=== PATIENT | male | born 2000 | race Caucasian/White ===

== ENCOUNTER 2020-03-10 07:39 | Emergency (ER) | payer OTHER ==
[2020-03-10] MEDS ORDERED: Bacitracin Oint 1 GM U/D Packet TOP ONE (08:09)
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
== END 2020-03-10 09:04 | disposition home or self-care (01) ==
LOC: JP.ED 07:39
DX: S61.012A Laceration without foreign body of left thumb without damage to nail, initial encounter (principal); Z88.0 Allergy status to penicillin; Z88.6 Allergy status to analgesic agent; F17.210 Nicotine dependence, cigarettes, uncomplicated; W27.8XXA Contact with other nonpowered hand tool, initial encounter
CPT/HCPCS: 12001; 99282; J2001

== ENCOUNTER 2020-05-15 02:46 | Emergency (ER) | payer SELFPAY ==
[2020-05-15] MEDS ORDERED: Ondansetron 4 MG Tab.DIS PO ONE (03:37)
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
== END 2020-05-15 03:55 | disposition home or self-care (01) ==
LOC: JP.ED 02:46
DX: S09.90XA Unspecified injury of head, initial encounter (principal); Z88.0 Allergy status to penicillin; Z88.6 Allergy status to analgesic agent; W20.8XXA Other cause of strike by thrown, projected or falling object, initial encounter; Y99.0 Civilian activity done for income or pay
CPT/HCPCS: 99001; 99283; A9270

== ENCOUNTER 2020-05-30 21:09 | Emergency (ER) | payer SELFPAY ==
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
== END 2020-05-30 23:27 | disposition home or self-care (01) ==
LOC: JP.ED 21:09
DX: K29.70 Gastritis, unspecified, without bleeding (principal); F17.210 Nicotine dependence, cigarettes, uncomplicated; Z88.0 Allergy status to penicillin; Z88.6 Allergy status to analgesic agent
CPT/HCPCS: 36415; 80053; 81001; 83690; 85025; 99284

== ENCOUNTER 2021-03-13 18:47 | Emergency (ER) | payer BC ==
[2021-03-13] MEDS ORDERED: Bacitracin Oint 1 GM U/D Packet TOP ONE (19:10)
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
== END 2021-03-13 19:52 | disposition home or self-care (01) ==
LOC: JP.ED 18:47
DX: S61.011A Laceration without foreign body of right thumb without damage to nail, initial encounter (principal); W26.8XXA Contact with other sharp object(s), not elsewhere classified, initial encounter; Y99.0 Civilian activity done for income or pay
CPT/HCPCS: 12001; 99282-25